=== PATIENT | male | born 1935 | race Caucasian/White ===

== ENCOUNTER 2016-09-30 11:46 | Emergency (ER) | payer MEDICARE, BC ==
[2016-09-30 12:54] VITALS: BP 132/57
[2016-09-30] MEDS ORDERED: Ibuprofen TAB* 600 MG PO ONE (14:26)
--- NOTE | 2016-09-30 14:34 | ED ---
Upper Extremity Pain - HPI Summary HPI Summary: Patient presents with right shoulder pain for 3 days that began without known incident. His daughter is accompanying him due to baseline confusion. He is unable to push up out of bed due to the pain. He denies swelling, warmth, N/T or weakness. No CP, SOB, VIGIL or neck pain. He has a history of rotator cuff repair years ago. - History of Current Complaint Chief Complaint: EDExtremityUpper Stated Complaint: RT ARM PAIN Time Seen by Provider: 09/30/16 14:02 Hx Obtained From: Patient, Family/Label Operator Hx From Patient Unobtainable Due To: Altered Mental Status - confused at baseline Mechanism Of Injury: Unknown Onset/Duration: Started Days Ago - 3 Timing: Constant Severity Initially: Moderate Severity Currently: Moderate Pain Location: Shoulder Character: Sharp, Aching Aggravating Factor(s): Movement Alleviating Factor(s): Rest Associated Signs & Symptoms: Positive: Negative Related History: Dominant Hand Right - Allergies/Home Medications Allergies/Adverse Reactions: Allergies Allergy/AdvReac Type Severity Reaction Status Date / Time Warfarin [From Coumadin] Allergy Mild Altered Verified 05/10/15 11:24 Mental Status Oxycodone [From Oxycontin] Allergy Hallucinati Verified 05/10/15 11:24 ons PMH/Surg Hx/FS Hx/Imm Hx Endocrine/Hematology History: Reports: Hx Anticoagulant Therapy - during knee surgeries. Denies: Hx Thyroid Disease Cardiovascular History: Reports: Hx Hypercholesterolemia, Hx Hypertension, Hx Peripheral Vascular Disease GI History: Reports: Hx Gastroesophageal Reflux Disease, Other GI Disorders - esophageal CA, Eid's esophagus History: Reports: Hx Kidney Stones Musculoskeletal History: Reports: Hx Back Problems, Hx Orthopedic Injury - bilateral knee replacement, right hip replacement Sensory History: Reports: Hx Contacts or Glasses, Hx Hearing Problem Opthamlomology History: Reports: Hx Contacts or Glasses Neurological History: Reports: Hx Dementia, Other Neuro Impairments/Disorders - PAIN CLINIC PT Psychiatric History: Reports: Hx Anxiety - Cancer History Cancer Type, Location and Year: esophageal cancer, 2013 Hx Radiation Therapy: Yes - Surgical History Surgery Procedure, Year, and Place: bilateral total knee replacements, revision right knee replacement. right total hip replacement. Resection esophageal cancer. Right rotator cuff repair Hx Anesthesia Reactions: No Infectious Disease History: No Infectious Disease History: Denies: Traveled Outside the [place] in Last 30 Days - Family History Known Family History: Positive: Cardiac Disease, Hypertension - Social History Occupation: Retired Lives: With Family Alcohol Use: None Substance Use Type: Reports: None Smoking Status (MU): Former Smoker Type: Cigars Amount Used/How Often: occasional cigar Have You Smoked in the Last Year: Yes Review of Systems Negative: Fever Negative: Chest Pain Negative: Shortness Of Breath Positive: Arthralgia, Decreased ROM. Negative: Edema Negative: Bruising Negative: Weakness, Paresthesia, Numbness All Other Systems Reviewed And Are Negative: Yes Physical Exam Triage Information Reviewed: Yes Vital Signs On Initial Exam: Initial Vitals Temp Pulse Resp BP Pulse Ox 98.6 F 76 20 145/83 98 09/30/16 11:52 09/30/16 11:52 09/30/16 11:52 09/30/16 11:52 09/30/16 11:52 Vital Signs Reviewed: Yes Appearance: Positive: Well-Appearing, Pain Distress, Obese Skin: Positive: Warm, Skin Color Reflects Adequate Perfusion, Dry, Soft Head/Face: Positive: Normal Head/Face Inspection Eyes: Positive: EOMI, NORBERTO, Conjunctiva Clear ENT: Positive: Hearing grossly normal Neck: Positive: Supple, Nontender, No Lymphadenopathy Respiratory/Lung Sounds: Positive: Breath Sounds Present Cardiovascular: Positive: RRR Musculoskeletal: Positive: Limited @ - FF to 20 with pain; ER to 10; IR to 30 all with pain, Pain @ - TTP right rhomboid; bicipital groove and deltoid; + Yergenson's; non-tender acromion, clavicle, humerus. Negative: Edema Right Neurological: Positive: Sensory/Motor Intact, NV Bundle Intact Distally Psychiatric: Positive: Affect/Mood Appropriate AVPU Assessment: Alert Diagnostics - Vital Signs Vital Signs Temp Pulse Resp BP Pulse Ox 09/30/16 12:53 98.9 F 69 16 132/57 96 09/30/16 11:52 98.6 F 76 20 145/83 98 - Laboratory Lab Statement: Any lab studies that have been ordered have been reviewed, and results considered in the medical decision making process. - Radiology No standard instances Xray Interpretation: No Acute Changes Radiology Interpretation Completed By: Radiologist Course/Dx - Course Course Of Treatment: Patient will be referred to orthopedics for evaluation and possible steroid injection for pain. - Diagnoses Differential Diagnosis/HQI/PQRI: Positive: Arthritis, Bursitis, Fracture (Closed ), Hematoma, Osteomyelitis, Strain, Sprain Provider Diagnoses: Right shoulder pain Discharge - Discharge Plan Condition: Stable Disposition: HOME Patient Education Materials: Shoulder Pain (ED) Referrals: Marv Smith MD [Medical Doctor] - Additional Instructions: Please rest your arm and use ibupofen 400mg three times daily with meals for the next 3-5 days. Add your oxycodone for pain as needed. Call Dr. Smith's office for evaluation and to discuss further treatment options. Return to the emergency department if symptoms worsen.
[2016-09-30] MEDS ORDERED: Ibuprofen TAB* 400 MG ONE (14:46)
[2016-09-30] MEDS ORDERED: Ibuprofen TAB* 400 MG PO ONE (14:55)
--- NOTE | 2016-09-30 15:12 | RAD ---
HISTORY: Right shoulder pain COMPARISONS: None VIEWS: 5, Frontal internal rotation, external rotation, and outlet views of the right shoulder FINDINGS: BONE DENSITY: There is diffuse osteopenia. BONES: There is no displaced fracture. JOINTS: There is moderate glenohumeral and AC joint osteoarthritis. There is narrowing of the acromiohumeral interval ALIGNMENT: There is no dislocation. SOFT TISSUES: Unremarkable. OTHER FINDINGS: None. IMPRESSION: 1. OSTEOPENIA. 2. OSTEOARTHRITIS. 3. NARROWING OF THE ACROMIOHUMERAL INTERVAL SUGGESTIVE OF CHRONIC ROTATOR CUFF INJURY. 4. NO ACUTE OSSEOUS INJURY. IF SYMPTOMS PERSIST, RECOMMEND REPEAT IMAGING
== END 2016-09-30 15:25 | disposition home or self-care (01) ==
LOC: ED 11:46
DX: M25.511 Pain in right shoulder (principal); R41.82 Altered mental status, unspecified; Z87.891 Personal history of nicotine dependence
CPT/HCPCS: 99282; A9270-GY

== ENCOUNTER 2017-02-08 11:27 | Observation (INO) | payer MEDICARE, BC ==
[2017-02-08] MEDS ORDERED: Morphine INJ* 4 MG/ML 1 ML SYRINGE IV ONE (12:22)
[2017-02-08] MEDS ORDERED: Ondansetron INJ* 2 MG/ML VIAL IV ONE (12:22)
[2017-02-08] MEDS ORDERED: NS 0.9% 1000 ML* 1,000 ML IV ONE (12:22)
[2017-02-08 12:40] LABS: Hematocrit 39 % (42-52); Hemoglobin 12.8 g/dl (14.0-18.0); Mean Corpuscular HGB Conc 33 g/dl (31-36); Mean Corpuscular Hemoglobin 35 pg (27-31); Mean Corpuscular Volume 104 fL (80-94); Mean Platelet Volume 8 um3 (7.4-10.4); Red Blood Count 3.71 10^6/ul (4.0-5.4); Red Cell Distribution Width 14 % (10.5-15); White Blood Count 7.1 10^3/ul (3.5-10.8)
[2017-02-08 12:51] LABS: Urine Bilirubin Negative (Negative); Urine Glucose Negative (Negative); Urine Nitrite Negative (Negative)
[2017-02-08 12:52] LABS: Troponin I 0.03 ng/mL (<0.04)
[2017-02-08 13:04] LABS: TSH (Thyroid Stimulating Horm) 0.67 mcIU/mL (0.34-5.60)
[2017-02-08 14:02] LABS: Albumin 3.8 g/dL (3.2-5.2); BUN/Creatinine Ratio 12.5 (8-20); Calcium 9.1 mg/dL (8.6-10.3); EGFR African American 96.9 (>60); EGFR Non-African American 75.4 (>60); Globulin 2.6 g/dL (2-4); Potassium 4.1 mmol/L (3.5-5.0); Total Bilirubin 0.4 mg/dL (0.2-1.0); Total Protein 6.4 g/dL (6.4-8.9)
--- NOTE | 2017-02-08 14:04 | RAD ---
INDICATION: Arm and leg pain COMPARISON: CTA chest/abdomen/pelvis May 21, 2014 TECHNIQUE: Noncontrast axial source images was performed from the thoracolumbar junction to the sacrum. Coronal and and sagittal reformatted images were generated. FINDINGS: Vertebrae: There is no fracture or acute focal bony lesion. Alignment: The lumbar vertebrae are normally aligned. Central Canal/intervertebral disc spaces. There is moderate narrowing about L1-L2 with vacuum disc phenomena. There is no significant canal compromise or direct nerve root impingement. L2-L3 likewise shows vacuum disc phenomena with mild broad-based circumferential bulging the disc leading to mild central canal stenosis. Note that direct impingement on exiting nerve roots. L3-L4 shows vacuum disc along the. There is facet overgrowth. There is no significant canal or foraminal compromise. L4-L5 demonstrates a small central protrusion without significant canal compromise. There is no direct nerve root impingement. L5-S1 shows no significant CT abnormalities. Note that MR imaging is a more sensitive method to evaluate the canal and foramina. Intervertebral disc spaces: The disc spaces are maintained. Soft tissues: The paravertebral soft tissues are normal. 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 The appearance is unchanged. There are several tiny nonobstructive renal calculi versus vascular calcifications. There is a 2.9 cm right renal cyst, unchanged IMPRESSION: MULTILEVEL DEGENERATIVE DISC DISEASE. MILD CENTRAL CANAL STENOSIS L4-L3. NO ACUTE CT FINDINGS.
--- NOTE | 2017-02-08 14:12 | RAD ---
INDICATION: Tenderness and numbness in the hands and feet. COMPARISON: There are no prior studies available for comparison. TECHNIQUE: Contiguous axial sections were obtained from the skull base through the T2 vertebra. Images were reconstructed in the sagittal and coronal planes. FINDINGS: There is straightening of the cervical spine. In addition there is mild anterolisthesis at the C4-C5 level of approximately 2 mm. No fracture is seen. At the C2-C3 level there is mild posterior uncinate process spurring and mild hypertrophic changes within the facet joints. No significant spinal canal narrowing is present. There is mild bilateral neural foraminal narrowing. At the C3-C4 level there is posterior uncinate process spurring and moderate hypertrophic changes within the facet joints. No significant spinal canal narrowing is present. There is moderate to severe bilateral neural foraminal narrowing. At the C4-C5 level there is mild posterior uncinate process spurring and there are moderate hypertrophic changes within the facet joints. No significant spinal canal narrowing is present. There is moderate neural foraminal narrowing on the right side and moderate to severe neural foraminal narrowing on the left side. At the C5-C6 level there is mild posterior uncinate process spurring and mild hypertrophic changes within the facet joints. No significant spinal canal narrowing is present. There is mild to moderate bilateral neural foraminal narrowing. At the C6-C7 level there is mild posterior uncinate process spurring. No significant spinal canal narrowing is present. There is mild to moderate bilateral neural foraminal narrowing. IMPRESSION: MODERATE DIFFUSE CERVICAL SPONDYLOSIS. IF THE PATIENT'S SYMPTOMS PERSIST RECOMMEND MR IMAGING FOR FURTHER EVALUATION.
[2017-02-08] MEDS ORDERED: NS 0.9% 1000 ML* 250 ML IV ONE (14:20)
--- NOTE | 2017-02-08 14:24 | ED ---
Corrine Fonseca Edward, scribed for Lili Sierra MD on 02/08/17 at 1222 . Complex/Multi-Sys Presentation - HPI Summary HPI Summary: 81 y/o male presents to ED c/o numbness in both feet starting today and acute on chronic pain in the lower back and legs. Associated sx: diarrhea for the past 2-3 days, weakness with diarrhea, difficulty walking for around 6 months. PMHx chronic pain - lower back and legs. No DM, HTN. Smoker. - History Of Current Complaint Chief Complaint: EDGeneral Time Seen by Provider: 02/08/17 11:58 Hx Obtained From: Patient Onset/Duration: Still Present Timing: Constant Associated Signs And Symptoms: Positive: Diarrhea, Back Pain - Lower back, Other - weakness, chronic pain in both LE, numbness in both LE - Allergies/Home Medications Allergies/Adverse Reactions: Allergies Allergy/AdvReac Type Severity Reaction Status Date / Time Warfarin [From Coumadin] Allergy Mild Altered Verified 05/10/15 11:24 Mental Status Oxycodone [From Oxycontin] Allergy Hallucinati Verified 05/10/15 11:24 ons Home Medications: Home Medications Beclomethasone Dipropionate (N [Qnasl] 160 mcg BOTH NARES DAILY PRN 02/08/17 [ History Confirmed 02/08/17] Bioflavonoid Products [Azalea-C] 1 tab PO DAILY 02/08/17 [History Confirmed 02/08] BuPROPion XL* [Bupropion XL*] 300 mg PO DAILY 02/08/17 [History Confirmed ] Docusate CAP* [Colace Cap*] 100 mg PO QAM 02/08/17 [History Confirmed 02/08/17] Memantine TAB* [Namenda TAB*] 10 mg PO BID 02/08/17 [History Confirmed 02/08/17] Multivitamins/Minerals TAB* [Theragran/minerals TAB*] 1 tab PO BID 02/08/17 [ History Confirmed 02/08/17] Pantoprazole TAB (NF) [Protonix TAB (NF)] 40 mg PO BID 02/08/17 [History Confirmed 02/08/17] traZODone TAB* [Desyrel TAB*] 150 mg PO BEDTIME 02/08/17 [History Confirmed ] PMH/Surg Hx/FS Hx/Imm Hx Previously Healthy: No Endocrine/Hematology History: Reports: Hx Anticoagulant Therapy - during knee surgeries. Denies: Hx Thyroid Disease Cardiovascular History: Reports: Hx Hypercholesterolemia, Hx Hypertension, Hx Peripheral Vascular Disease GI History: Reports: Hx Gastroesophageal Reflux Disease, Other GI Disorders - esophageal CA, Eid's esophagus History: Reports: Hx Kidney Stones Musculoskeletal History: Reports: Hx Back Problems, Hx Orthopedic Injury - bilateral knee replacement, right hip replacement Sensory History: Reports: Hx Contacts or Glasses, Hx Hearing Problem Opthamlomology History: Reports: Hx Contacts or Glasses Neurological History: Reports: Hx Dementia, Other Neuro Impairments/Disorders - PAIN CLINIC PT Psychiatric History: Reports: Hx Anxiety - Cancer History Cancer Type, Location and Year: esophageal cancer, 2013 Hx Radiation Therapy: Yes - Surgical History Surgery Procedure, Year, and Place: bilateral total knee replacements, revision right knee replacement. right total hip replacement. Resection esophageal cancer. Right rotator cuff repair Hx Anesthesia Reactions: No Infectious Disease History: Denies: Traveled Outside the [place] in Last 30 Days - Family History Known Family History: Positive: Cardiac Disease, Hypertension - Social History Alcohol Use: None Hx Substance Use: No Substance Use Type: Reports: None Hx Tobacco Use: Yes Smoking Status (MU): Former Smoker Type: Cigars Amount Used/How Often: occasional cigar Have You Smoked in the Last Year: Yes Review of Systems Constitutional: Negative Eyes: Negative ENT: Negative Cardiovascular: Negative Respiratory: Negative Positive: Diarrhea Genitourinary: Negative Positive: Arthralgia - Lower back pain, pain in lower legs Skin: Negative Positive: Weakness - Lower legs, Numbness - Both legs Psychological: Normal All Other Systems Reviewed And Are Negative: Yes Physical Exam Triage Information Reviewed: Yes Vital Signs On Initial Exam: Initial Vitals Temp Pulse Resp BP Pulse Ox 98.4 F 88 18 150/106 96 02/08/17 11:43 02/08/17 11:43 02/08/17 11:43 02/08/17 11:43 02/08/17 11:43 Vital Signs Reviewed: Yes Appearance: Positive: No Pain Distress, Ill-Appearing - Mild discomfort Skin: Positive: Warm, Skin Color Reflects Adequate Perfusion, Dry Eyes: Positive: EOMI, NORBERTO ENT: Positive: Pharynx normal, TMs normal Neck: Positive: Supple, Nontender Respiratory/Lung Sounds: Positive: Clear to Auscultation, Breath Sounds Present. Negative: Rales, Rhonchi, Wheezes Cardiovascular: Positive: RRR, Other - No gallop. Negative: Murmur, Rub Abdomen Description: Positive: Nontender, Soft, Other: - No rebound. Negative: Distended, Guarding Bowel Sounds: Positive: Present Musculoskeletal: Positive: Strength/ROM Intact, Pain @ - Diffuse C-spine tenderness @ C4-C5.. Negative: Edema Left, Edema Right Neurological: Positive: Normal, Sensory/Motor Intact, Alert, Oriented to Person Place, Time, CN Intact II-III Psychiatric: Positive: Affect/Mood Appropriate Diagnostics - Vital Signs Vital Signs Temp Pulse Resp BP Pulse Ox 02/08/17 11:43 98.4 F 88 18 150/106 96 - Laboratory Lab Results: Lab Results 02/08/17 02/08/17 02/08/17 Range/Units 12:00 12:00 12:00 WBC 7.1 (3.5-10.8) 10^3/ul RBC 3.71 L (4.0-5.4) 10^6/ul Hgb 12.8 L (14.0-18.0) g/dl Hct 39 L (42-52) % MCV 104 H (80-94) fL MCH 35 H (27-31) pg MCHC 33 (31-36) g/dl RDW 14 (10.5-15) % Plt Count 180 (150-450) 10^3/ul MPV 8 (7.4-10.4) um3 Neut % (Auto) 67.6 (38-83) % Lymph % (Auto) 21.2 L (25-47) % [place] % (Auto) 7.8 (1-9) % Eos % (Auto) 2.5 (0-6) % Baso % (Auto) 0.9 (0-2) % Absolute Neuts (auto) 4.8 (1.5-7.7) 10^3/ul Absolute Lymphs (auto) 1.5 (1.0-4.8) 10^3/ul Absolute Monos (auto) 0.6 (0-0.8) 10^3/ul Absolute Eos (auto) 0.2 (0-0.6) 10^3/ul Absolute Basos (auto) 0.1 (0-0.2) 10^3/ul Absolute Nucleated RBC 0.01 10^3/ul Nucleated RBC % 0.1 Sodium 139 (133-145) mmol/L Potassium 4.1 (3.5-5.0) mmol/L Chloride 106 (101-111) mmol/L Carbon Dioxide 26 (22-32) mmol/L Anion Gap 7 (2-11) mmol/L BUN 12 (6-24) mg/dL Creatinine 0.96 (0.67-1.17) mg/dL Est GFR ( Amer) 96.9 (>60) Est GFR (Non-Af Amer) 75.4 (>60) BUN/Creatinine Ratio 12.5 (8-20) Glucose 105 H (70-100) mg/dL Lactic Acid 1.6 (0.5-2.0) mmol/L Calcium 9.1 (8.6-10.3) mg/dL Magnesium 2.0 (1.9-2.7) mg/dL Total Bilirubin 0.40 (0.2-1.0) mg/dL AST 22 (13-39) U/L ALT 19 (7-52) U/L Alkaline Phosphatase 61 (34-104) U/L Troponin I 0.03 (<0.04) ng/mL Total Protein 6.4 (6.4-8.9) g/dL Albumin 3.8 (3.2-5.2) g/dL Globulin 2.6 (2-4) g/dL Albumin/Globulin Ratio 1.5 (1-3) TSH 0.67 (0.34-5.60) mcIU/mL Urine Color Urine Appearance Urine pH (5-9) Ur Specific [place] (1.010-1.030) Urine Protein (Negative) Urine Ketones (Negative) Urine Blood (Negative) Urine Nitrate (Negative) Urine Bilirubin (Negative) Urine Urobilinogen (Negative) Ur Leukocyte Esterase (Negative) Urine Glucose (Negative) Urine Ascorbic Acid (Negative) 02/08/17 Range/Units 12:39 WBC (3.5-10.8) 10^3/ul RBC (4.0-5.4) 10^6/ul Hgb (14.0-18.0) g/dl Hct (42-52) % MCV (80-94) fL MCH (27-31) pg MCHC (31-36) g/dl RDW (10.5-15) % Plt Count (150-450) 10^3/ul MPV (7.4-10.4) um3 Neut % (Auto) (38-83) % Lymph % (Auto) (25-47) % [place] % (Auto) (1-9) % Eos % (Auto) (0-6) % Baso % (Auto) (0-2) % Absolute Neuts (auto) (1.5-7.7) 10^3/ul Absolute Lymphs (auto) (1.0-4.8) 10^3/ul Absolute Monos (auto) (0-0.8) 10^3/ul Absolute Eos (auto) (0-0.6) 10^3/ul Absolute Basos (auto) (0-0.2) 10^3/ul Absolute Nucleated RBC 10^3/ul Nucleated RBC % Sodium (133-145) mmol/L Potassium (3.5-5.0) mmol/L Chloride (101-111) mmol/L Carbon Dioxide (22-32) mmol/L Anion Gap (2-11) mmol/L BUN (6-24) mg/dL Creatinine (0.67-1.17) mg/dL Est GFR ( Amer) (>60) Est GFR (Non-Af Amer) (>60) BUN/Creatinine Ratio (8-20) Glucose (70-100) mg/dL Lactic Acid (0.5-2.0) mmol/L Calcium (8.6-10.3) mg/dL Magnesium (1.9-2.7) mg/dL Total Bilirubin (0.2-1.0) mg/dL AST (13-39) U/L ALT (7-52) U/L Alkaline Phosphatase (34-104) U/L Troponin I (<0.04) ng/mL Total Protein (6.4-8.9) g/dL Albumin (3.2-5.2) g/dL Globulin (2-4) g/dL Albumin/Globulin Ratio (1-3) TSH (0.34-5.60) mcIU/mL Urine Color Yellow Urine Appearance Clear Urine pH 5.0 (5-9) Ur Specific [place] 1.024 (1.010-1.030) Urine Protein Negative (Negative) Urine Ketones Trace H (Negative) Urine Blood Negative (Negative) Urine Nitrate Negative (Negative) Urine Bilirubin Negative (Negative) Urine Urobilinogen Negative (Negative) Ur Leukocyte Esterase Negative (Negative) Urine Glucose Negative (Negative) Urine Ascorbic Acid * H (Negative) Result Diagrams: 02/08/17 12:00 02/08/17 12:00 Lab Statement: Any lab studies that have been ordered have been reviewed, and results considered in the medical decision making process. - CT LUMBAR SPINE CT CT Interpretation: Positive (See Comments) - MULTILEVEL DEGENERATIVE DISC DISEASE. MILD CENTRAL CANAL STENOSIS L4-L3. NO ACUTE CT FINDINGS. CT Interpretation Completed By: Radiologist CERVICAL SPINE CT CT Interpretation: Positive (See Comments) - MODERATE DIFFUSE CERVICAL SPONDYLOSIS. IF THE PATIENT'S SYMPTOMS PERSIST RECOMMEND MR IMAGING FOR FURTHER EVALUATION. CT Interpretation Completed By: Radiologist - EKG 1 EKG Rhythm: Sinus Bradycardia - @ 57 bpm EKG Interpretation: 12:26 - anterior and inferior Q waves EKG Comparison: No Significant Change - 07/24/14 Complex Multi-Symp Course/Dx Course Of Treatment: 81 yo male with chronic back pain now unable to ambluate at home after several days of diarrhea - Diagnoses Provider Diagnoses: Diarrhea - Physician Notifications Discussed Care Of Patient With: Latasha Linares Time Discussed With Above Provider: 14:00 Instructed by Provider To: Admit As Inpatient Discharge - Discharge Plan Condition: Stable Disposition: ADMITTED TO [facility] Referrals: Brian LEES,Fernando Merchant [Primary Care Provider] - The documentation as recorded by the Corrine gusman Edward accurately reflects the service I personally performed and the decisions made by , Lili Sierra MD.
[2017-02-08] MEDS ORDERED: Ondansetron INJ* 2 MG/ML VIAL IV PRN (14:41)
[2017-02-08] MEDS: NS 0.9% 1000 ML* 1,000 ML IV SCH (16:35)
[2017-02-08] MEDS: oxyCODONE/Acetamin 5/325 MG* TAB PO PRN ×2 (17:57→23:49)
[2017-02-08] MEDS: Memantine TAB* 10 MG PO SCH (20:28)
[2017-02-08] MEDS: Multivitamins/Minerals TAB PO SCH (20:28)
[2017-02-08] MEDS ORDERED: HYDROcodone/ACETAMIN 5-325 MG* 1 TAB PO PRN (20:33)
[2017-02-08] MEDS: oxyCODONE TAB* 5 MG TAB PO PRN (20:51)
[2017-02-08] MEDS: Heparin VIAL(*) 5000 UNITS/ML VIAL (FIVE THOUSAND) SUBCUT SCH (20:53)
[2017-02-08] MEDS ORDERED: traZODone TAB* 100 MG PO SCH (21:00)
[2017-02-09] MEDS ORDERED: oxyCODONE TAB* 5 MG TAB PO ONE (02:18)
[2017-02-09] MEDS: oxyCODONE TAB* 5 MG TAB PO PRN (05:28)
[2017-02-09] MEDS: Heparin VIAL(*) 5000 UNITS/ML VIAL (FIVE THOUSAND) SUBCUT SCH (05:30)
[2017-02-09] MEDS: NS 0.9% 1000 ML* 1,000 ML IV SCH ×2 (06:04→13:34)
[2017-02-09] MEDS ORDERED: Omeprazole CAP* 20 MG PO SCH (07:30)
--- NOTE | 2017-02-09 08:30 | HP ---
CC: Dr. Torres. * HISTORY AND PHYSICAL: DATE OF ADMISSION: 02/08/17 PRIMARY CARE PROVIDER: Dr. Torres. CHIEF COMPLAINT: Nausea, vomiting, diarrhea, and weakness. HISTORY OF PRESENT ILLNESS: Mr. Davis is an 81-year-old male with history of dementia, lumbar stenosis, depression, and chronic pain related to lumbar stenosis, who presents to the emergency room with complaints of nausea, vomiting , and diarrhea. The patient's provides the bulk of the history due to the patient's dementia. She states that he is having nausea, vomiting, and diarrhea since this past Wednesday afternoon. She states that he has eaten very little over the last few days; however, at the time of my evaluation of the patient in the emergency room, he was eating a tuna fish sandwich and drinking pedro traci. The patient's notes that, due to his severe lumbar stenosis, he has a very difficult time with ambulation; and, therefore, over the last few days, she has been having a very difficult time caring for him as he cannot get out of bed easily and, therefore, has been having to be cleaned up in bed. The patient denies any abdominal pain. He denies any recent sick contacts. The patient's states that he has felt cold recently; however, she denies any fevers. The patient, at the time of my evaluation, had just received morphine and was feeling much improved. PAST MEDICAL HISTORY: 1. Dementia. 2. GERD. 3. Lumbar stenosis. 4. Depression. PAST SURGICAL HISTORY: Bilateral total knee replacements. ALLERGIES: COUMADIN and OXYCODONE. MEDICATIONS: 1. Colace 100 mg p.o. daily. 2. Vitamin B12 1000 mcg p.o. daily. 3. Bioflavonoid one tab p.o. daily. 4. Multivitamin one tab p.o. b.i.d. 5. Namenda 10 mg p.o. b.i.d. 6. Trazodone 150 mg p.o. q.h.s. 7. Protonix 40 mg p.o. b.i.d. 8. Percocet 10/325 two tabs p.o. q. 6 hours p.r.n. pain. 9. Donepezil 10 mg p.o. daily. 10. Celexa 20 mg p.o. daily. 11. Bupropion XL 300 mg p.o. daily. 12. Aspirin 81 mg p.o. daily. 13. QNASL 160 mcg both nostrils daily p.r.n. congestion. FAMILY HISTORY: Positive for history of stroke, heart attack, and arthritis. SOCIAL HISTORY: The patient has a history of tobacco abuse. He does not drink alcohol. 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. He is . His is his healthcare proxy. REVIEW OF SYSTEMS: No fevers or chills. His appetite has been poor over the last few days. No chest pain, no cough, no shortness of breath. He has had nausea, vomiting, diarrhea, but no abdominal pain. No issues with urination, though he is incontinent. No focal weakness or sensory loss though the patient is generally weak. He has a difficult time getting out of bed and ambulating due to his lumbar stenosis. No dysphagia. No joint pains or muscle pains out of the ordinary. No rashes. No anxiety or issues with depression at this time. PHYSICAL EXAMINATION GENERAL: The patient is a well-developed, elderly obese male, sitting up on the stretcher, eating a tuna fish sandwich, in no acute distress. VITAL SIGNS: Blood pressure 161/99, pulse 94, respirations 19, temperature 98.7 , O2 sat 95% on room air. HEENT: Pupils are equal, they are round, they react to light. Extraocular muscles are intact. Oropharynx is clear. Oral mucosa is moist. There is no submandibular, cervical, or supraclavicular adenopathy. Thyroid is not enlarged. No thyroid nodules are noted. PULMONARY: Lungs are clear to auscultation bilaterally. CARDIAC: Cardiac: Normal S1, S2. Regular rate and rhythm. I do not appreciate any murmurs. There is trace bilateral ankle edema. ABDOMEN: Bowel sounds are hyperactive. Abdomen is soft, nontender, nondistended. MUSCULOSKELETAL: There is full active range of motion of the upper extremities. Lower extremity range of motion is limited due to weakness from his spinal stenosis. SKIN: Warm and dry. There are no rashes. NEURO: Cranial nerves II through XII are grossly intact. Sensation is intact to light touch throughout. Strength is 5/5 and symmetric in the upper extremities. Distal strength (dorsi and plantar flexion) is 5/5 and symmetric bilaterally. PSYCH: Patient is alert; he is oriented to place. He is a poor historian. DIAGNOSTIC STUDIES/LAB DATA: WBC 7.1, hemoglobin 12.8, hematocrit 39, platelets 180. Sodium 139, potassium 4.1, chloride 106, CO2 26, BUN 12, creatinine 0.96, glucose 105, lactic acid 1.6, calcium 9.1, magnesium 2.0, bilirubin 0.4, AST 22, ALT 19, alk phos 61, troponin 0.03, albumin 3.8, TSH 0.67. Urinalysis reveals specific gravity of 1.024, trace ketones, and otherwise negative. EKG reveals sinus bradycardia with flat T-waves in the lateral leads, otherwise no acute ST-T wave abnormalities. Cervical spine CT reveals moderate diffuse cervical spondylosis. Lumbar spine CT reveals multilevel degenerative disc disease. Mild central canal stenosis at L3-L4 without any acute findings. ASSESSMENT AND PLAN: Mr. Davis is an 81-year-old man with history of dementia and lumbar stenosis, who presents to the emergency room with nausea, vomiting, diarrhea, and weakness. 1. Nausea, vomiting, diarrhea. The patient was able to eat a tuna fish sandwich in the emergency room. He, however, after completing half of the sandwich told his that his stomach felt as if it was churning. The patient , however, has not vomited. The patient will be monitored overnight for persistent nausea, vomiting, and diarrhea. He did have a small loose bowel movement in a bedpan while in the ER. If the patient has another bowel movement , we can send stool studies. I suspect this is likely just a viral illness that led to the nausea, vomiting, and diarrhea. 2. Lumbar spinal stenosis. The patient's CT scan does not reveal severe stenosis. It is unclear why the patient is so limited in his ability to get out of bed and ambulate easily. Physical therapy evaluation will be obtained. He may need rehab. I will discuss this with field nurse case manager. 3. Dementia. The patient will be maintained on his usual home medication regimen. 4. Depression. We will continue the patient's home antidepressants. 5. Hypertension. The patient formerly carried a history of hypertension; however, he is not on any medications. I will monitor his blood pressures through today and, if they remain elevated, we will go ahead and start low-dose amlodipine. 6. GERD. Continue PPI. 7. DVT prophylaxis. According to the Adult Thrombosis Prophylaxis Risk Factor Assessment guide, the patient has a total risk factor score of 5, making him the highest risk. He will be placed on heparin 5000 units subcutaneous q. 8 hours. 8. Code status is DNR. Again, the patient's is his healthcare proxy. TIME SPENT: 55 minutes were spent admitting this patient. [id number]/[facility] #: [id number] HALIMA
[2017-02-09] MEDS ORDERED: Donepezil TAB* 5 MG PO SCH (09:00)
[2017-02-09] MEDS ORDERED: Cyanocobalamin TAB* 500 MCG PO SCH (09:00)
[2017-02-09] MEDS ORDERED: BuPROPion XL* 300 MG TAB.XL PO SCH (09:00)
[2017-02-09] MEDS ORDERED: Aspirin Low Dose CHEW TAB* 81 MG PO SCH (09:00)
[2017-02-09] MEDS ORDERED: Citalopram TAB* 20 MG PO SCH (09:00)
[2017-02-09] MEDS: Multivitamins/Minerals TAB PO SCH (09:06)
[2017-02-09] MEDS: Memantine TAB* 10 MG PO SCH (09:06)
[2017-02-09 12:26] VITALS: BP 144/84
[2017-02-09] MEDS: oxyCODONE/Acetamin 5/325 MG* TAB PO PRN (13:33)
--- NOTE | 2017-02-10 13:15 | DS ---
CC: Dr. Fernando Torres * DISCHARGE SUMMARY: DATE OF ADMISSION: 02/08/17 DATE OF DISCHARGE: 02/09/17 PRIMARY CARE PROVIDER: Dr. Fernando Torres. PRINCIPAL DIAGNOSIS: Probable gastroenteritis. SECONDARY DIAGNOSES: 1. Dementia. 2. Gastroesophageal reflux disease. 3. Lumbar stenosis. 4. Depression. DISCHARGE MEDICATIONS: 1. Colace 100 mg p.o. daily. 2. Vitamin B12 1000 mcg p.o. daily. 3. Bioflavonoid 1 tab p.o. daily. 4. Multivitamin 1 tab p.o. b.i.d. 5. Namenda 10 mg p.o. b.i.d. 6. Trazodone 150 mg p.o. q.h.s. 7. Protonix 40 mg p.o. b.i.d. 8. Percocet 10/325 two tabs p.o. q.6 hours p.r.n. pain. 9. Donepezil 10 mg p.o. daily. 10. Celexa 20 mg p.o. daily. 11. Bupropion XL 300 mg p.o. daily. 12. Aspirin 81 mg p.o. daily. 13. QNASL 160 mcg both nostrils daily p.r.n. congestion. HOSPITAL COURSE: Mr. Davis is an 81-year-old male who has a history of dementia and difficulty ambulating related to lumbar stenosis, who was brought to the emergency room on 02/08/17 with complaints of nausea, vomiting, and diarrhea. The patient's provided the bulk of the history on admission that included the patient having these symptoms since the Wednesday prior to admission. She had noted that she was having a very difficult time caring for him at home as he does not move well, getting out of the bed, and she was having a difficult time with all the diarrhea that he had been having. The decision was made to admit the patient under observation status to monitor for further vomiting and diarrhea; however, at the time of my evaluation in the emergency room, the patient was eating a tuna fish sandwich. The patient continued to do well over the course of his hospitalization. He had no further nausea, vomiting, or diarrhea. He ate regular meals without any difficulty. The patient was seen in consultation by Physical Therapy due to the complaint of difficulty getting out of bed. The patient was able to take steps to a chair. He needed a minimum assist for bed mobility transfer and short ambulation. It was recommended that he continue with skilled PT to address the areas of deficit. The patient was ultimately felt to be able to be discharged home with the care of his and assistance from visiting nurses and home PT. FOLLOWUP CONCERNS: The patient is being discharged home today, 02/09/17. ACTIVITY LEVEL: As tolerated. DIET: Regular. CONDITION ON DISCHARGE: Stable. FOLLOWUP: The patient should follow up with Dr. Torres in the next 4 to 7 days. TIME SPENT: Twenty-five minutes was spent discharging this patient. [id number]/[facility] #: [id number] MTDD
== END 2017-02-09 14:48 | disposition home or self-care (01) ==
LOC: ED 11:27 → MEDTELE 14:40
PROVIDERS: ADMIT Hospitalist; ATTEND Hospitalist
DX: R11.2 Nausea with vomiting, unspecified (principal); R19.7 Diarrhea, unspecified; F03.90 Unspecified dementia, unspecified severity, without behavioral disturbance, psychotic disturbance, mood disturbance, and anxiety; M54.5 Low back pain; R26.2 Difficulty in walking, not elsewhere classified; M48.06 Spinal stenosis, lumbar region; M47.812 Spondylosis without myelopathy or radiculopathy, cervical region; R20.0 Anesthesia of skin; I10 Essential (primary) hypertension; F34.1 Dysthymic disorder; M79.606 Pain in leg, unspecified; M79.603 Pain in arm, unspecified; R94.31 Abnormal electrocardiogram [ECG] [EKG]
CPT/HCPCS: 36415; 72125; 72131; 80053; 81003; 83605; 83735; 84443; 84484; 85025; 93005; 96374; 96375; 99285; A9270-GY; G0378; G8978-GP-CL; G8979-GP-CI; J1644; J2270; J2405

== ENCOUNTER 2017-04-08 17:10 | Emergency (ER) | payer MEDICARE, BC ==
[2017-04-08] MEDS ORDERED: NS 0.9% 1000 ML* 1,000 ML IV ONE (17:48)
[2017-04-08 18:47] LABS: Hematocrit 38 % (42-52); Hemoglobin 12.8 g/dl (14.0-18.0); Mean Corpuscular HGB Conc 34 g/dl (31-36); Mean Corpuscular Hemoglobin 34 pg (27-31); Mean Corpuscular Volume 100 fL (80-94); Mean Platelet Volume 8 um3 (7.4-10.4); Red Blood Count 3.77 10^6/ul (4.0-5.4); Red Cell Distribution Width 14 % (10.5-15); White Blood Count 8.8 10^3/ul (3.5-10.8)
--- NOTE | 2017-04-08 18:52 | RAD ---
INDICATION: Right upper quadrant pain. COMPARISON: Comparison is made with a prior CT of the abdomen and pelvis from May 21, 2014 and a prior renal ultrasound also from May 21, 2014. TECHNIQUE: Multiple real-time images of the right upper quadrant were obtained. FINDINGS: The gallbladder appear normal. No gallbladder wall thickening or pericholecystic fluid is present. No intra or extrahepatic ductal distention is present. The common bile duct measured 0.3 cm in diameter. The liver is normal in size and heterogeneous in echogenicity. No focal abnormality is seen. The pancreas is partially obscured by overlying bowel gas. The right kidney is normal in size and echogenicity measuring 11.6 x 6.0 x 4.7 cm. There is a minimally complex cyst with a single internal septation present measuring 3.3 x 2.5 x 2.5 cm which has increased slightly in size from the prior renal ultrasound study. IMPRESSION: 1. NORMAL EXAM OF THE GALLBLADDER. 2. MINIMALLY COMPLEX RIGHT RENAL CYST.
[2017-04-08 18:59] LABS: ALT 10 U/L (7-52); AST 14 U/L (13-39); Albumin 3.7 g/dL (3.2-5.2); Alkaline Phosphatase 73 U/L (34-104); Anion Gap 7 mmol/L (2-11); BUN/Creatinine Ratio 13.6 (8-20); Blood Urea Nitrogen 14 mg/dL (6-24); C Reactive Protein 79.52 mg/L (< 5.00); CO2 Carbon Dioxide 25 mmol/L (22-32); Calcium 8.7 mg/dL (8.6-10.3); Chloride 105 mmol/L (101-111); EGFR African American 89.4 (>60); EGFR Non-African American 69.5 (>60); Globulin 2.5 g/dL (2-4); Glucose 124 mg/dL (70-100); Lipase < 10 U/L (11.0-82.0); Sodium 137 mmol/L (133-145); Total Protein 6.2 g/dL (6.4-8.9)
--- NOTE | 2017-04-08 19:31 | RAD ---
INDICATION: Right upper quadrant pain. COMPARISON: Comparison is made with a prior chest x-ray study from July 24, 2014. TECHNIQUE: AP and lateral views of the chest were obtained. FINDINGS: The heart appears mildly enlarged and unchanged from the prior study. The lungs are hyperinflated. There is a 2.3 cm nodular density which projects over the right upper lobe seen in the AP view. The lungs are otherwise clear. No pleural effusion is seen. The results of this exam were discussed with the referring clinician. IMPRESSION: RIGHT UPPER LOBE PULMONARY NODULE, RECOMMEND A CT OF THE CHEST WITH CONTRAST FOR FURTHER EVALUATION.
[2017-04-08] MEDS ORDERED: Iohexol 300* (CONTRAST) 10 ML SDV IV ONE (19:34)
--- NOTE | 2017-04-08 20:22 | RAD ---
INDICATION: Abdominal pain lung mass. COMPARISON: Comparison is made with a prior CT angiogram of the chest from December 22, 2014. Correlation is also made with a right upper quadrant ultrasound from April 08, 2017 and a chest x-ray from April 08, 2017. TECHNIQUE: A CT scan of the chest, abdomen and pelvis was performed with intravenous and without oral contrast following intravenous injection of 150 ml of Omnipaque 300 nonionic contrast. Contiguous axial sections were obtained from the lung apices through the symphysis pubis. Images were reconstructed in the coronal and sagittal planes. FINDINGS: There is a mass in the right upper lobe measuring 2.4 x 1.9 cm in size which has an irregular lobulated margins suspicious for a lung carcinoma. There is mild dependent bilateral lower lobe atelectasis. The lungs are otherwise clear. No pleural effusion is seen. There are multiple enlarged lymph nodes in the mediastinum in the pretracheal and subcarinal regions measuring up to 2.8 cm in transverse dimension. There are also enlarged right hilar lymph nodes measuring up to 2.9 cm in transverse dimension. There is a slightly enlarged 1.1 cm left hilar lymph node. The heart is mildly enlarged. There are coronary artery calcifications. No pericardial effusion is present. The thoracic aorta is normal in caliber. The liver is positioned more centrally than typically seen with the hepatic flexure located adjacent to the right lateral aspect of the liver between the liver and hemidiaphragm. The liver is decreased in attenuation consistent with fatty infiltration. No significant focal abnormality is seen. No calcified gallstones are seen. The spleen appears to be within normal limits. There is fatty infiltration of the pancreas which is otherwise unremarkable. The kidneys are normal in size. There is a 2 mm calculus in the midportion of the right kidney which is nonobstructing. There are several small bilateral renal cysts present. The largest cyst is in the midportion of the right kidney and measures 3.2 cm in size. 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 There is moderate calcific plaque present within the abdominal aorta. No enlarged retroperitoneal or mesenteric lymph nodes are seen. The stomach, small and large bowel appear nondistended. The appendix appears to be within normal limits. There is mild stranding adjacent to the hepatic flexure in the mesenteric fat. No wall thickening is seen. These findings are nonspecific although would be suggestive of colitis, epiploic appendagitis evidence or a mesenteric infarct. Recommend clinical correlation and follow-up. No free intraperitoneal air or fluid is seen. No significant focal osseous abnormality is seen. IMPRESSION: 1. RIGHT UPPER LOBE MASS AND ENLARGED MEDIASTINAL AND HILAR LYMPH NODES. 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 THE PATIENT ALSO HAS A HISTORY OF ESOPHAGEAL CARCINOMA AND THEREFORE THE FINDINGS MAY ALL BE SECONDARY TO METASTATIC DISEASE FROM ESOPHAGEAL CANCER. 2. NO EVIDENCE FOR METASTATIC DISEASE IN THE ABDOMEN. 3. THERE IS INTERSTITIAL STRANDING IN THE MESENTERIC FAT ADJACENT TO THE HEPATIC FLEXURE WITHOUT WALL THICKENING. THESE FINDINGS ARE NONSPECIFIC AND MAY BE SECONDARY TO COLITIS, EPIPLOIC APPENDAGITIS OR MESENTERIC INFARCT. RECOMMEND CLINICAL CORRELATION AND FOLLOW-UP. 4. HEPATIC STEATOSIS.
[2017-04-08 21:41] LABS: Urine Bilirubin Negative (Negative); Urine Glucose Negative (Negative); Urine Nitrite Negative (Negative)
[2017-04-08 22:07] VITALS: BP 134/70
--- NOTE | 2017-05-03 22:41 | ED ---
Trevin Fonseca SooYoung, scribed for Christiano Palma MD on 04/08/17 at 1741 . Abdominal Pain/Male - HPI Summary HPI Summary: A 81 y/o M presents to ED with c/o RUQ abd pain onset this AM approx 0900. Rated pain as 7 out of 10 at onset, denies pain at bedside. Associated sx: abd distension, diarrhea. BM recently. Denies fever, chills, dysuria, urinary sx. He 's had similar episodes previously, unsure of dx. No prev abd surgeries. PMHx: HTN, neg cardiac. No ETOH, occ cigar smoking. - History of Current Complaint Chief Complaint: EDAbdPain Stated Complaint: ABD PAIN Time Seen by Provider: 04/08/17 17:39 Hx Obtained From: Patient Onset/Duration: Gradual Onset, Lasting Hours, Still Present Timing: Constant Severity Initially: Moderate - rated 7/10 Severity Currently: None Pain Intensity: 0 Pain Scale Used: 0-10 Numeric Location: Discrete At: RUQ Associated Signs And Symptoms: Positive: Diarrhea, Other - pos: abd distension; neg: chills. Negative: Fever, Urinary Symptoms - Allergies/Home Medications Allergies/Adverse Reactions: Allergies Allergy/AdvReac Type Severity Reaction Status Date / Time Warfarin [From Coumadin] Allergy Mild Altered Verified 05/10/15 11:24 Mental Status Oxycodone [From Oxycontin] AdvReac Hallucinati Verified 02/08/17 20:01 ons PMH/Surg Hx/FS Hx/Imm Hx Previously Healthy: No Endocrine/Hematology History: Reports: Hx Anticoagulant Therapy - during knee surgeries. Denies: Hx Thyroid Disease Cardiovascular History: Reports: Hx Hypercholesterolemia, Hx Hypertension, Hx Peripheral Vascular Disease GI History: Reports: Hx Gastroesophageal Reflux Disease, Other GI Disorders - esophageal CA, Eid's esophagus History: Reports: Hx Kidney Stones Musculoskeletal History: Reports: Hx Back Problems - Spinal stenosis, Hx Orthopedic Injury - bilateral knee replacement, right hip replacement Sensory History: Reports: Hx Contacts or Glasses - does not have glasses with him, Hx Hearing Problem Denies: Hx Hearing Aid Opthamlomology History: Reports: Hx Contacts or Glasses - does not have glasses with him Neurological History: Reports: Hx Dementia, Other Neuro Impairments/Disorders - PAIN CLINIC PT Psychiatric History: Reports: Hx Anxiety - Cancer History Cancer Type, Location and Year: esophageal cancer, 2013 Hx Radiation Therapy: Yes - Surgical History Surgery Procedure, Year, and Place: bilateral total knee replacements, revision right knee replacement. right total hip replacement. Resection esophageal cancer. Right rotator cuff repair Hx Anesthesia Reactions: No Infectious Disease History: No Infectious Disease History: Denies: Traveled Outside the [place] in Last 30 Days - Family History Known Family History: Positive: Cardiac Disease, Hypertension - Social History Occupation: Retired Lives: With Family Alcohol Use: None Hx Substance Use: No Substance Use Type: Reports: None Substance Use Comment - Amount & Last Used: percocet 10/325 2 every 6 hours Hx Tobacco Use: Yes Smoking Status (MU): Former Smoker Type: Cigars Amount Used/How Often: occasional cigar Have You Smoked in the Last Year: Yes Review of Systems Negative: Fever, Chills Positive: Abdominal Pain, Diarrhea, Other - pos: abd distension Negative: dysuria, frequency All Other Systems Reviewed And Are Negative: Yes Physical Exam Triage Information Reviewed: Yes Vital Signs On Initial Exam: Initial Vitals Temp Pulse Resp BP Pulse Ox 97.8 F 88 16 148/90 96 04/08/17 17:11 04/08/17 17:11 04/08/17 17:11 04/08/17 17:11 04/08/17 17:11 Vital Signs Reviewed: Yes Appearance: Positive: Well-Appearing, No Pain Distress Skin: Positive: Skin Color Reflects Adequate Perfusion Head/Face: Positive: Normal Head/Face Inspection Eyes: Positive: EOMI ENT: Positive: Normal ENT inspection Neck: Positive: Nontender Respiratory/Lung Sounds: Positive: Clear to Auscultation, Breath Sounds Present Cardiovascular: Positive: RRR. Negative: Murmur Abdomen Description: Positive: Nontender, Soft, Distended, Other: - obese. No hernias. Negative: Guarding, Peritoneal Signs Musculoskeletal: Positive: Strength/ROM Intact Neurological: Positive: Sensory/Motor Intact, Alert, Oriented to Person Place, Time, CN Intact II-III Psychiatric: Positive: Normal - Wann Coma Scale Best Eye Response: 4 - Spontaneous Best Motor Response: 6 - Obeys Commands Best Verbal Response: 5 - Oriented Diagnostics - Vital Signs Vital Signs Temp Pulse Resp BP Pulse Ox 04/08/17 17:11 97.8 F 88 16 148/90 96 - Laboratory Result Diagrams: 04/08/17 18:34 04/08/17 18:34 Lab Statement: Any lab studies that have been ordered have been reviewed, and results considered in the medical decision making process. - Radiology CXR Xray Interpretation: Positive (See Comments) - IMPRESSION: RIGHT UPPER LOBE PULMONARY NODULE, RECOMMEND A CT OF THE CHEST WITH CONTRAST FOR FURTHER EVALUATION. Radiology Interpretation Completed By: Radiologist - CT C/A/P CT CT Interpretation: Positive (See Comments) - IMPRESSION: 1. RIGHT UPPER LOBE MASS AND ENLARGED MEDIASTINAL AND HILAR LYMPH NODES. 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 THE PATIENT ALSO HAS A HISTORY OF ESOPHAGEAL CARCINOMA AND THEREFORE THE FINDINGS MAY ALL BE SECONDARY TO METASTATIC DISEASE FROM ESOPHAGEAL CANCER. 2. NO EVIDENCE FOR METASTATIC DISEASE IN THE ABDOMEN. 3. THERE IS INTERSTITIAL STRANDING IN THE MESENTERIC FAT ADJACENT TO THE HEPATIC FLEXURE WITHOUT WALL THICKENING. THESE FINDINGS ARE NONSPECIFIC AND MAY BE SECONDARY TO COLITIS, EPIPLOIC APPENDAGITIS OR MESENTERIC INFARCT. RECOMMEND CLINICAL CORRELATION AND FOLLOW-UP. 4. HEPATIC STEATOSIS. ED physician has reviewed this radiology report and agrees. CT Interpretation Completed By: Radiologist - Ultrasound No standard instances Ultrasound Interpretation: No Acute Changes - ABD U/S: IMPRESSION: 1. NORMAL EXAM OF THE GALLBLADDER. 2. MINIMALLY COMPLEX RIGHT RENAL CYST. ED physician has reviewed this radiology report and agrees. Ultrasound Interpretation Completed By: Radiologist - EKG 1843 Cardiac Rate: NL - 67bpm EKG Rhythm: Sinus Rhythm ST Segment: Normal - no STEMI EKG Comparison: No Significant Change - compared to last tracing on file 2016 Abdominal Pain Fem Course/Dx - Course Course Of Treatment: An 81 y/o M presents RUQ abd pain onset 0900. Rated pain as 7 out of 10 at onset, denies pain at bedside. Associated sx: abd distension, diarrhea. BM recently. Denies fever, chills, dysuria, urinary sx. No prev abd surgeries. The patient has had no abdominal pain for over four hours. He did have diarrhea and abdominal distention earlier consitent with some colitis. He is comfortable. He has metatstatic disease in his chest that was discussed with the and the patient. [facility] [place] [facility] [place] [facility] [place] want to stay in [place] for follow up. THe patient has had esophageal cancer in the past that was treated in [facility]. He has not seen oncology there in over a year at this point. Dr Jon the radiologist called me and asked me to please order a CT chest abdomen and pelvis on the patient with abdominal pain and a lung mass that looks suspicious for malignancy on chest xray. Bloodwork is without significant abnormalities except CRP 79.5. UA results show trace ketones , ascorbic acid present and 1.049 specific gravity. EKG is NSR, no STEMI. CXR shows "IMPRESSION: RIGHT UPPER LOBE PULMONARY NODULE, RECOMMEND A CT OF THE CHEST WITH CONTRAST FOR FURTHER EVALUATION." ABD U/S shows "1. NORMAL EXAM OF THE GALLBLADDER. 2. MINIMALLY COMPLEX RIGHT RENAL CYST." C/A/P CT shows " 1. RIGHT UPPER LOBE MASS AND ENLARGED MEDIASTINAL AND HILAR LYMPH NODES. 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 THE PATIENT ALSO HAS A HISTORY OF ESOPHAGEAL CARCINOMA AND THEREFORE THE FINDINGS MAY ALL BE SECONDARY TO METASTATIC DISEASE FROM ESOPHAGEAL CANCER. 2. NO EVIDENCE FOR METASTATIC DISEASE IN THE ABDOMEN. 3. THERE IS INTERSTITIAL STRANDING IN THE MESENTERIC FAT ADJACENT TO THE HEPATIC FLEXURE WITHOUT WALL THICKENING. THESE FINDINGS ARE NONSPECIFIC AND MAY BE SECONDARY TO COLITIS, EPIPLOIC APPENDAGITIS OR MESENTERIC INFARCT. RECOMMEND CLINICAL CORRELATION AND FOLLOW-UP. 4. HEPATIC STEATOSIS." - Diagnoses Provider Diagnoses: Abdominal pain, Mass of right lung, Metastatic disease - Provider Notifications Discussed Care Of Patient With: Raina Wang - oncology Time Discussed With Above Provider: 21:27 - she took the name and info on the patient and they will call thepatient for follow up for oncology Discharge - Discharge Plan Condition: Good Disposition: HOME Patient Education Materials: Pulmonary Nodules (ED), Hypertension (ED), Abdominal Pain (ED) Referrals: Brian LEES,Fernando Merchant [Primary Care Provider] - 2 Days Shay Pablo MD [Medical Doctor] - 2 Days Raina Wang MD [Medical Doctor] - 2 Days The documentation as recorded by the Trevin gusman SooYoung accurately reflects the service I personally performed and the decisions made by me, Christiano Palma MD.
== END 2017-04-08 22:13 | disposition home or self-care (01) ==
LOC: ED 17:10
DX: R91.8 Other nonspecific abnormal finding of lung field (principal); C79.9 Secondary malignant neoplasm of unspecified site; R19.7 Diarrhea, unspecified; R10.11 Right upper quadrant pain; Z87.891 Personal history of nicotine dependence
CPT/HCPCS: 36415; 71020; 71260; 74177; 76705; 80053; 81003; 83605; 83690; 85025; 85610; 86140; 87040; 93005; 99284; Q9967